=== PATIENT | male | born 1945 | race Caucasian/White ===

== ENCOUNTER 2021-05-04 13:55 | Outpatient (CLI) | payer MEDICARE, OTHER, SELFPAY ==
[2021-05-04 15:40] LABS: Erythrocyte Sedimentation Rate 7 mm/hr (0-20)
[2021-05-04 16:04] LABS: LDH 204 U/L (87-241)
[2021-05-11 17:07] LABS: Albumin 4.4 g/dL (2.9-4.4); Alpha-1-Globulins 0.3 g/dL (0.0-0.4); Alpha-2-Globulins 0.7 g/dL (0.4-1.0); Endomysial Antibody IgA Negative (Negative); Gamma Globulin 0.9 g/dL (0.4-1.8); Immunoglobulin A 424 mg/dL (61-437); Immunoglobulin G 931 mg/dL (603-1613); Immunoglobulin M 201 mg/dL (15-143); PROEL- TOTAL PROTEIN 7.5 g/dL (6.0-8.5)
[2021-05-11 17:55] LABS: Immunoglobulin E 55 IU/mL (6-495); t-Transglutaminase IgA 2 U/mL (0-3)
== END 2021-05-04 23:59 | disposition home or self-care (01) ==
LOC: LAB 13:59
PROVIDERS: PCP Nurse Practitioner Primary Care; Referring Provider Internal Medicine Gastroenterology; Visit Provider Internal Medicine Gastroenterology
DX: R19.7 Diarrhea, unspecified (principal)
CPT/HCPCS: 36415; 82784; 82785; 83516; 83615; 84165; 85652; 86140; 86255; 86334

== ENCOUNTER 2021-05-06 12:59 | Outpatient (CLI) | payer MEDICARE, OTHER, SELFPAY ==
[2021-05-08 15:07] LABS: H. PYLORI STOOL AG Negative (Negative)
[2021-05-09 08:10] LABS: Giardia Lamblia, Stool EIA Negative (Negative)
[2021-05-09 20:45] LABS: Calprotectin, Stool 23 ug/g (0-120)
== END 2021-05-06 23:59 | disposition home or self-care (01) ==
LOC: LABSPEC 13:01
PROVIDERS: PCP Nurse Practitioner Primary Care; Referring Provider Internal Medicine Gastroenterology; Visit Provider Internal Medicine Gastroenterology
DX: R19.7 Diarrhea, unspecified (principal)
CPT/HCPCS: 82274; 83630; 83993; 87329; 87506